=== PATIENT | female | born 1970 | race Caucasian/White ===

== ENCOUNTER 2017-05-27 08:34 | Emergency (ER) | payer MEDICAID, OTHER ==
[~2017-05-27] VITALS: Ht 165.1 cm; Wt 68.0 kg
[2017-05-27 08:50] VITALS: BP 129/88
[2017-05-27] MEDS ORDERED: KETOROLAC 60MG/2ML VIAL IM ONE (11:00)
== END 2017-05-27 11:38 | disposition left against medical advice (07) ==
LOC: ER 08:34
DX: M54.2 Cervicalgia (principal); M25.512 Pain in left shoulder; M25.511 Pain in right shoulder; V49.88XA Car occupant (driver) (passenger) injured in other specified transport accidents, initial encounter; Y93.89 Activity, other specified; Y92.89 Other specified places as the place of occurrence of the external cause; Y99.8 Other external cause status
CPT/HCPCS: 99283